=== PATIENT | female | born 1955 | race Caucasian/White ===

== ENCOUNTER → 2016-04-28 | Outpatient (CLI) | payer MEDICAID ==
--- NOTE | 2016-04-28 10:50 | MA ---
Screening Digital Mammogram With iCAD Indication: Routine screening. Unilateral left breast augmentation. No history of breast cancer. Technique: Standard cephalocaudal and mediolateral oblique projections are obtained. Implant-displac ed CC and MLO views were obtained of the left breast. This examination is processed by the [facility] [employer] ter-aided detection system. Comparison: March 2015, March 2013, March 2012, and August 2009. Breast density: Type B. Findings: CAD was reviewed. No suspicious microcalcifications, mass, or architectural distortion. The left breast augmentation mammoplasty is unchanged in configuration. Impression: Negative mammogram. BI-RADS 1. Recommendation: Routine screening is recommended in one year. [facility] will send a result letter to the patient. Negative mammography should not preclude additional workup of a clinically suspicious finding. The patient's information is entered into a reminder system with a target due date for her next mammo gram.
== END ==
LOC: CIMAGING 09:55
DX: Z12.31 Encounter for screening mammogram for malignant neoplasm of breast (principal)
CPT/HCPCS: G0202

== ENCOUNTER → 2016-05-03 | Outpatient (CLI) | payer MEDICAID ==
--- NOTE | 2016-05-03 12:22 | DX ---
Chest, PA and Lateral Views, 3 Views Total - May 03, 2016, at 11:40 a.m. Clinical History: 60-year-old female with shortness of breath and a cough. Comparison Study: None. Findings: Cervical arthrodesis hardware is present. The cardiac and mediastinal silhouette are normal in size. There is mild central perihilar bronchial wall thickening. The lungs are hyperexpanded. The re is some linear diskoid subsegmental atelectasis versus scar in the lateral left mid-lung. There is no confluent alveolar consolidation, pleural effusion, peripheral interstitial edema, or pneumothora x. There are degenerative features of the spine with a mild kyphosis and a couple of midthoracic vent ral wedging deformities. When clinically feasible, a DEXA scan is suggested. Impression: 1. Mild perihilar bronchitis with some left peripheral lateral linear scar versus diskoid subsegmenta l atelectasis. 2. 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 When clinically feasible, a DEXA scan is suggested.
== END ==
LOC: CIMAGING 11:15
PROVIDERS: ATTEND Internal Medicine
DX: J40 Bronchitis, not specified as acute or chronic (principal); R06.02 Shortness of breath; R05 Cough; M51.34 Other intervertebral disc degeneration, thoracic region; M40.204 Unspecified kyphosis, thoracic region
CPT/HCPCS: 71020-PO

== ENCOUNTER → 2017-05-02 | Outpatient (CLI) | payer MEDICAID | LOC: CIMAGING 08:37 | PROVIDERS: ATTEND Internal Medicine | DX: Z12.31 Encounter for screening mammogram for malignant neoplasm of breast (principal) ==

== ENCOUNTER 2017-10-06 10:06 | Emergency (ER) | payer MEDICAID ==
[2017-10-06] MEDS ORDERED: IPRATROPIUM/ALBUTEROL 3 ML DEYVIAL IH ONE (10:12)
[2017-10-06] MEDS ORDERED: predniSONE 20 MG TAB PO ONE (10:53)
[2017-10-06 11:19] VITALS: BP 117/66
--- NOTE | 2017-10-06 11:27 | EDPHY ---
H & P Time Seen by Provider: 10/06/17 10:08 HPI/ROS: CHIEF COMPLAINT: Shortness of breath HISTORY OF PRESENT ILLNESS: Patient states she has had shortness of breath, cough, chest tightness since about last Tuesday. She states that last week she had a headache all week but then the respiratory symptoms developed later on Tuesday. She saw her primary care doctor on Tuesday and was started on a Medrol Dosepak Tuesday. She does use multiple inhalers and they have not been helping her as much as normal. She has COPD from smoking with no history of asthma as a child. She denies fever, sore throat, chest pain. She noticed since starting the Medrol Dosepak but she has developed a little bit of sinus congestion. She denies other symptoms. Contents of 10 point review of systems otherwise negative except for what is mentioned in HPI. General Appearance: Alert, no distress. Eyes: Pupils equal and round no pallor or injection. ENT, Mouth: Mucous membranes moist. Respiratory: There are no retractions, lungs are clear to auscultation. No wheezes but quite diminished bilaterally. Cardiovascular: Regular rate and rhythm. Gastrointestinal: Abdomen is soft and nontender, no masses, bowel sounds normal. Neurological: Awake and alert, no focal neurologic deficits. Skin: Warm and dry, no rashes. Some wounds to lower extremities from her dog. Musculoskeletal: Neck is supple nontender. Extremities are symmetrical, full range of motion, no edema. Psychiatric: Patient is oriented X 3, there is no agitation. Medical/surgical history: COPD, emphysema. Cervical neck fusion. Social history: Previous smoker. Smoking Status: Current every day smoker Constitutional: Initial Vital Signs Temperature (C) 36.7 C 10/06/17 10:12 Heart Rate 80 10/06/17 10:12 Respiratory Rate 18 10/06/17 10:12 Blood Pressure 156/74 H 10/06/17 10:12 O2 Sat (%) 96 10/06/17 10:12 O2 Delivery Mode Room Air Allergies/Adverse Reactions: naproxen sodium [From Aleve] Allergy (Verified 11/06/15 10:39) Home Medications: Medication Instructions Recorded Combivent Unk Dose 11/06/15 Qvar Unk Dose 11/06/15 Azithromycin [Zithromax] 250 mg PO DAILY #6 tab 10/06/17 Proair Hfa 10/06/17 celeCOXIB 10/06/17 Medical Decision Making ED Course/Re-evaluation: 10:50 a.m. Re-evaluation after DuoNeb better aeration bilaterally. Differential Diagnosis: Differential diagnosis includes but is not limited to COPD exacerbation, pneumonia, chronic bronchitis, CHF. After evaluation, patient likely with residual chronic bronchitis not improving despite steroid treatments. Will give 1 single dose of 60 mg of prednisone today with instructions to continue Medrol Dosepak as previously prescribed. Also will add antibiotics as they may be beneficial in the context of chronic bronchitis and COPD. No fevers, edema, chest pain to suggest other source. Patient has appropriate primary care follow -up early next week and understands return precautions. Stable for discharge. - Data Points Medications Given: Discontinued Medications Albuterol/Ipratropium (Duoneb) 3 ml IH EDNOW ONE Stop: 10/06/17 10:13 Last Admin: 10/06/17 10:30 Dose: 3 ml Prednisone (Prednisone) 60 mg PO EDNOW ONE Stop: 10/06/17 10:54 Last Admin: 10/06/17 11:18 Dose: 60 mg Departure - Departure Clinical Impression: COPD with exacerbation Condition: Good Instructions: COPD (Chronic Obstructive Pulmonary Disease) (ED) Additional Instructions: Continue your Medrol Dosepak tomorrow as discussed. Use inhalers as we reviewed. Follow up with her primary care physician next week as scheduled. Return to the emergency department if you are experiencing worsening symptoms of shortness of breath, cough, fever, chest pain. Referrals: Michael De Dios MD [Primary Care Provider] - As per Instructions Prescriptions: Azithromycin [Zithromax] 250 mg PO DAILY #6 tab
== END 2017-10-06 11:32 | disposition home or self-care (01) ==
LOC: CED 10:06
DX: J44.1 Chronic obstructive pulmonary disease with (acute) exacerbation (principal); F17.200 Nicotine dependence, unspecified, uncomplicated
CPT/HCPCS: J7512